=== PATIENT | female | born 1995 | race Caucasian/White ===

== ENCOUNTER 2017-11-06 12:03 | Emergency (ER) | payer OTHER ==
[2017-11-06 12:28] VITALS: BP 131/88
--- NOTE | 2017-11-06 13:22 | UC ---
Complaint Female HPI - HPI Summary HPI Summary: Patient is a 22-year-old female with a history of irregular periods and suprapubic tenderness intermittently presenting to the with complaint of vaginal bleeding 2 days after her first Pap smear. She states she began bleeding several hours after her Pap smear and has been bleeding through approximately 3-4 pads per day over the past 2 days. Endorses some lower bilateral abdominal cramping as well. She has a transvaginal ultrasound scheduled tomorrow to assess for cysts and irregular periods. She is not sexually active. Denies taking any control. History of anemia but has not taken any iron supplementation. LMP 2 weeks ago. Tends to be irregular every 2-3 months. - History Of Current Complaint Chief Complaint: UCAbdominalPain Stated Complaint: ABD PAIN Time Seen by Provider: 11/06/17 12:44 Hx Obtained From: Patient Hx Last Menstrual Period: October 12, 2017 ?: No Onset/Duration: Sudden Onset Timing: Constant Severity Initially: Moderate Severity Currently: Moderate Pain Intensity: 6 Pain Scale Used: 0-10 Numeric Character: Cramping Alleviating Factor(s): Position Associated Signs And Symptoms: Positive: Vaginal Bleeding/Discharge - Risk Factors Ovarian Torsion Risk Factor: Reproductive Age, Ovarian Cysts/Tumors - Allergies/Home Medications Allergies/Adverse Reactions: Allergies Allergy/AdvReac Type Severity Reaction Status Date / Time No Known Allergies Allergy Verified 11/06/17 12:29 Home Medications: Home Medications NK [No Home Medications Reported] 11/06/17 [History Confirmed 11/06/17] PMH/Surg Hx/FS Hx/Imm Hx Previously Healthy: Yes - Surgical History Surgical History: None - Family History Known Family History: Positive: Other - vaginal bleeding disorders, thyroid disorders - Social History Occupation: Unemployed, Student Lives: Dormitory/Roommates Alcohol Use: Occasionally Substance Use Type: None Smoking Status (MU): Never Smoked Tobacco - Immunization History Most Recent Influenza Vaccination: 2013 Most Recent Pneumonia Vaccination: N/A Review of Systems Constitutional: Negative Skin: Negative Respiratory: Negative Cardiovascular: Negative Genitourinary: Abnormal Bleeding Motor: Negative Neurovascular: Negative Neurological: Weakness Is Patient Immunocompromised?: No All Other Systems Reviewed And Are Negative: Yes Physical Exam Triage Information Reviewed: Yes Appearance: Well-Appearing, No Pain Distress, Well-Nourished Vital Signs: Initial Vital Signs Temp 99.6 F 11/06/17 12:23 Pulse 18 11/06/17 12:23 Resp 18 11/06/17 12:23 BP 131/88 11/06/17 12:23 Pulse Ox 98 11/06/17 12:23 Eye Exam: Normal Eyes: Positive: Conjunctiva Clear Neck exam: Normal Neck: Positive: Supple Respiratory Exam: Normal Cardiovascular Exam: Normal Cardiovascular: Positive: RRR Musculoskeletal Exam: Normal Musculoskeletal: Positive: Strength Intact Neurological: Positive: Alert Psychological: Positive: Normal Response To Family Skin Exam: Normal Complaint Female Dx - Course Course Of Treatment: I discussed with the patient treatment options. I have stated we are unable to provide immediate blood work with results here in the urgent care. She does not appear to be anemic at this time and does not have pallor. She does endorse some feeling fatigued over the past few days. Pathology specimen obtained which shows normal findings. No STDs. I've advised her to take an iron supplement and to go to the ED for any worsening symptoms, especially if soaking through 1 pad for every 2 hours. - Differential Dx/Diagnosis Provider Diagnoses: Abnormal Vaginal Bleeding Discharge - Sign-Out/Discharge Documenting (check all that apply): Patient Departure - Discharge Plan Condition: Stable Disposition: HOME Referrals: No Primary Care Phys,NOPCP [Primary Care Provider] - Additional Instructions: Follow up with OBGYN following your US Iron supplements once to twice daily and add on stool softener after 2-3 days ( Senna at bedtime is best) This will help prevent constipation associated with iron If you begin to bleed through 1 pad every 2 hours - go to the ED As discussed, all your labs, swabs and pap smear swabs obtained were within normal range Your bleeding should begin to subside Take motrin three times daily for pain and to thin blood clots - Billing Disposition and Condition Condition: STABLE Disposition: Home Attestation Statement User Type: Provider - I was available for consult. This patient was seen by the MEHUL. The patient was not presented to, seen by, or examined by me. -Sylvia
== END 2017-11-06 13:23 | disposition home or self-care (01) ==
LOC: UCEAST 12:03
DX: N93.9 Abnormal uterine and vaginal bleeding, unspecified (principal)
CPT/HCPCS: 99211; G0463